=== PATIENT | male | born 1965 | race Caucasian/White ===

== ENCOUNTER 2017-01-24 22:11 | Emergency (ER) | payer OTHER ==
[2017-01-24 22:16] VITALS: BP 150/90; PULSE 74; TEMP 98.3; BMI 41.6
[2017-01-24] MEDS ORDERED: SODIUM CHLORIDE 1,000 ML IV STA (23:13)
[2017-01-24 23:22] LABS: BASOPHIL 0.7 % (0-2.0); EOSINOPHIL 4.4 % (0-4.5); MCH 31.1 pg (25.7-33.7); MCHC 34.6 g/dl (32.0-35.9); MEAN CELL VOLUME 89.8 fl (80-96); MEAN PLT VOLUME 7.6 fl (7.5-11.1); NEUTROPHILS 63.7 % (42.8-82.8); PLATELET COUNT 198 K/MM3 (134-434); RDW 13.3 % (11.9-15.9); WHITE BLOOD COUNT 7.3 K/mm3 (4.0-10.0)
--- NOTE | 2017-01-24 23:45 | PDOC ---
History of Present Illness - History of Present Illness Initial Comments: 01/24/17 23:45 The patient is a 51 year old male with history of hyperlipidemia and obesity who presents to the ED complaining of an episode of room-spinning dizziness with associated shortness of breath that began around 8 PM today and lasted only a few minutes. The patient states he was eating dinner at a restaurant at the onset of his symptoms. No fever or chills. No chest pain or palpitations. No headache, visual changes, or paresthesias. No nausea, vomiting, or diarrhea. He states he has been sick with sore throat and cough. <Karoline Moe - Last Filed: 01/24/17 23:45> - General History Source: Patient, Family Exam Limitations: No Limitations <Vincent Calles - Last Filed: 01/27/17 09:37> - General Chief Complaint: Lightheaded Stated Complaint: DIZZY/HEADACHE Time Seen by Provider: 01/24/17 22:56 Past History <Karoline Moe - Last Filed: 01/24/17 23:45> - Past Medical History HTN: Yes Hypercholesterolemia: Yes - Family Disease History Family Disease History: Heart Disease: Brother ( heart surgery in his 30s, no congenital etiology) - Immunization History Immunization Up to Date: Yes - Psycho/Social/Smoking Cessation Hx Anxiety: No Suicidal Ideation: No Smoking Status: No Smoking History: Never smoked Have you smoked in the past 12 months: No Number of Cigarettes Smoked Daily: 0 Hx Alcohol Use: No Drug/Substance Use Hx: No Substance Use Type: None Hx Substance Use Treatment: No <Vincent Calles - Last Filed: 01/27/17 09:37> - Past Medical History Allergies/Adverse Reactions: Allergies Allergy/AdvReac Type Severity Reaction Status Date / Time No Known Allergies Allergy Verified 01/24/17 22:16 Home Medications: Ambulatory Orders Ibuprofen 600 mg PO Q6H PRN #20 tablet 01/25/17 Meclizine HCl 25 mg PO Q6H PRN #15 tablet 01/25/17 Review of Systems - Review of Systems Able to Perform ROS?: Yes Comments:: 01/24/17 23:48 GENERAL/CONSTITUTIONAL: No fever or chills. No weakness. HEAD, EYES, EARS, NOSE AND THROAT: +Sore throat. No change in vision. No ear pain or discharge. CARDIOVASCULAR: +SOB (resolved) No chest pain, palpitations, lightheadedness. RESPIRATORY: +cough. No wheezing, or hemoptysis. GASTROINTESTINAL: No nausea, vomiting, diarrhea or constipation. GENITOURINARY: No dysuria, frequency, or change in urination. MUSCULOSKELETAL: No joint or muscle swelling or pain. No neck or back pain. SKIN: No rash NEUROLOGIC: +vertiginous dizziness (resolved). No headache, loss of consciousness, or change in strength/sensation. ENDOCRINE: No increased thirst. No abnormal weight change. HEMATOLOGIC/LYMPHATIC: No anemia, easy bleeding, or history of blood clots. ALLERGIC/IMMUNOLOGIC: No hives or skin allergy. <Karoline Moe - Last Filed: 01/24/17 23:45> *Physical Exam - Vital Signs Last Vital Signs Temp Pulse Resp BP Pulse Ox 98.3 F 74 18 150/90 97 01/24/17 22:13 01/24/17 22:13 01/24/17 22:13 01/24/17 22:13 01/24/17 22:13 - Physical Exam Comments: 01/24/17 23:49 GENERAL: Awake, alert, and fully oriented, in no acute distress HEAD: No signs of trauma EYES: PERRLA, EOMI, sclera anicteric, conjunctiva clear ENT: Auricles normal inspection, hearing grossly normal, nares patent, oropharynx clear without exudates. Moist mucosa NECK: Normal ROM, supple, no lymphadenopathy, JVD, or masses LUNGS: Breath sounds equal, clear to auscultation bilaterally. No wheezes, and no crackles HEART: Regular rate and rhythm, normal S1 and S2, no murmurs, rubs or gallops ABDOMEN: Soft, nontender, normoactive bowel sounds. No guarding, no rebound. No masses EXTREMITIES: Normal range of motion, no edema. No clubbing or cyanosis. No cords, erythema, or tenderness NEUROLOGICAL: Cranial nerves II through XII grossly intact. Normal speech, normal gait. Sensation intact throughout. 5/5 motor strength in 4 extremities. No cerebellar signs. Gait is normal without ataxia. SKIN: Warm, Dry, normal turgor, no rashes or lesions noted. <Karoline Moe - Last Filed: 01/24/17 23:45> - Vital Signs Last Vital Signs Temp Pulse Resp BP Pulse Ox 98.3 F 74 18 150/90 97 01/24/17 22:13 01/24/17 22:13 01/24/17 22:13 01/24/17 22:13 01/24/17 22:13 - Physical Exam Comments: 01/27/17 09:36 CORRECTION TO SCRIBE NOTE: CN II-XII is intact (NOT GROSSLY INTACT) <Vincent Calles - Last Filed: 01/27/17 09:37> Heart Score/ECG Review #1 ECG reviewed & interpreted by me at: 23:35 01/24/17 23:41 NSR 66, no std/kaelyn, normal intervals, normal axis, QTC 423 msec. no brugada, no HOCM, no WPW <Vincent Calles - Last Filed: 01/27/17 09:37> ED Treatment Course - LABORATORY CBC & Chemistry Diagram: 01/24/17 23:15 01/24/17 23:15 - ADDITIONAL ORDERS Additional order review: 01/24/17 23:15 RBC 4.85 MCV 89.8 MCHC 34.6 RDW 13.3 MPV 7.6 Neutrophils % 63.7 Lymphocytes % 21.7 D Monocytes % 9.5 Eosinophils % 4.4 Basophils % 0.7 <Karoline Moe - Last Filed: 01/24/17 23:45> - LABORATORY CBC & Chemistry Diagram: 01/24/17 23:15 01/24/17 23:15 - ADDITIONAL ORDERS Additional order review: 01/24/17 23:15 RBC 4.85 MCV 89.8 MCHC 34.6 RDW 13.3 MPV 7.6 Neutrophils % 63.7 Lymphocytes % 21.7 D Monocytes % 9.5 Eosinophils % 4.4 Basophils % 0.7 <Vincent Calles - Last Filed: 01/27/17 09:37> Medical Decision Making - Medical Decision Making 01/24/17 23:41 A portion of this note was documented by scribe services under my direction. I have reviewed the details of the note, within reason, and agree with the documentation with the following case summary and management plan written by me. Patient treated in the ED. Nursing notes are reviewed and incorporated into the medical decision-making. Vital signs reviewed. Peripheral IV access obtained by the nurse, laboratory studies are drawn and sent, reviewed and interpreted by myself. Vital Signs Temp Pulse Resp BP Pulse Ox 98.3 F 74 18 150/90 97 01/24/17 22:13 01/24/17 22:13 01/24/17 22:13 01/24/17 22:13 01/24/17 22:13 51 year old male with PMH of HLD, obesity presents with likely peripheral vertigo. The patient reports that he has been under the weather and with mild URI symptoms. Was at dinner today, when he felt vertiginous like symptoms. He felt a dizziness sensation and subsequently felt short of breath. Never had chest pain. Once his vertiginous symptoms resolved (in a few minutes), his SOB resolved. Reports feeling well. Never feinted. This occurred around 8 pm. I suspect that this was all peripheral vertigo. The patient's SOB sounds more secondary to anxiousness from his vertiginous symptoms. The patient reports having a history of prior vertigo episodes. The patient's ECG is reassuring. Will check labs and give IVF. If workup is negative, the patient may be discharged. Low suspicion for cardiac etiology. 01/25/17 00:03 CBC, BMP 01/24/17 23:15 01/24/17 23:15 CMP Sodium 142 mmol/L (136-145) 01/24/17 23:15 Potassium 3.8 mmol/L (3.5-5.1) 01/24/17 23:15 Chloride 105 mmol/L (98-107) 01/24/17 23:15 Carbon Dioxide 26 mmol/L (21-32) 01/24/17 23:15 Anion Gap 11 (8-16) 01/24/17 23:15 BUN 15 mg/dL (7-18) 01/24/17 23:15 Creatinine 1.0 mg/dL (0.7-1.3) D 01/24/17 23:15 Creat Clearance w eGFR > 60 (>60) 01/24/17 23:15 Random Glucose 144 mg/dL (74-106) H D 01/24/17 23:15 Calcium 8.3 mg/dL (8.5-10.1) L 01/24/17 23:15 Total Bilirubin 0.5 mg/dL (0.2-1.0) 01/24/17 23:15 AST 67 U/L (15-37) H D 01/24/17 23:15 ALT 106 U/L (12-78) H D 01/24/17 23:15 Alkaline Phosphatase 116 U/L (45-117) 01/24/17 23:15 Creatine Kinase 89 IU/L (39-308) 01/24/17 23:15 Troponin I < 0.02 ng/ml (0.00-0.05) 01/24/17 23:15 Total Protein 7.3 g/dl (6.4-8.2) 01/24/17 23:15 Albumin 3.7 g/dl (3.4-5.0) 01/24/17 23:15 Labs reviewed. There is some mild elevations in the LFTs. However, a copy of the LFTs were given to the patient to bring back to his doctor. The patient reports feeling reassured. Troponin is negative. Given the patient's URI symptoms, we'll prescribe Motrin. We'll also give a prescription for Antivert. I discussed the physical exam findings, ancillary test results and final diagnoses with the patient. I answered all of the patient's questions. The patient was satisfied with the care received and felt comfortable with the discharge plan and treatment plan. The patient will call their primary care physician within 24 hours to arrange follow-up and will return to the Emergency Department with any new, persistant or worsening symptoms. <Vincent Calles - Last Filed: 01/27/17 09:37> *DC/Admit/Observation/Transfer - Attestations Scribe Attestion: 01/24/17 23:49 Documentation prepared by Karoline Moe, acting as medical reception for Vincent Calles MD. <Karoline Moe - Last Filed: 01/24/17 23:45> - Discharge Dispostion Admit: No <Vincent Calles - Last Filed: 01/27/17 09:37> Diagnosis at time of Disposition: Vertigo - Discharge Dispostion Disposition: HOME Condition at time of disposition: Good - Prescriptions Prescriptions: Ibuprofen 600 mg PO Q6H PRN #20 tablet PRN Reason: Pain/fever Meclizine HCl 25 mg PO Q6H PRN #15 tablet PRN Reason: Vertigo - Referrals Referrals: Joao Lucas MD [Primary Care Provider] - - Patient Instructions Printed Discharge Instructions: DI for Vertigo Additional Instructions: Please drink plenty of fluids. If you start to feel dizzy, take a tablet of meclizine every 6 to 8 hours as needed. Take 600 mg ibuprofen for sore throat.
[2017-01-24 23:46] LABS: ALBUMIN 3.7 g/dl (3.4-5.0); ALK PHOS 116 U/L (45-117); ANION GAP 11 (8-16); BILIRUBIN,TOTAL 0.5 mg/dL (0.2-1.0); CALCIUM 8.3 mg/dL (8.5-10.1); CO2 26 mmol/L (21-32); GLUCOSE,RANDOM 144 mg/dL (74-106); SGOT/AST 67 U/L (15-37); SGPT/ALT 106 U/L (12-78); TOT PROT 7.3 g/dl (6.4-8.2)
[2017-01-24 23:48] LABS: TROPONIN I < 0.02 ng/ml (0.00-0.05)
[2017-01-24] MEDS ORDERED: IBUPROFEN 600 MG TABLET (FP) PO ONE (23:56)
[2017-01-25] MEDS ORDERED: IBUPROFEN 600 MG TABLET (FP) PO ONE (00:10)
--- NOTE | 2017-01-27 17:46 | EKG ---
Test Reason : Blood Pressure : / mmHG Vent. Rate : 066 BPM Atrial Rate : 066 BPM P-R Int : 164 ms QRS Dur : 088 ms QT Int : 404 ms P-R-T Axes : 054 055 059 degrees QTc Int : 423 ms NORMAL SINUS RHYTHM NORMAL ECG WHEN COMPARED WITH ECG OF 17-APR-2013 09:47, NO SIGNIFICANT CHANGE WAS FOUND Confirmed by LARON TEJADA MD ([id number]) on 01/27/2017 5:46:45 PM Referred By: Confirmed By:LARON TEJADA MD
== END 2017-01-25 00:17 | disposition home or self-care (01) ==
LOC: JER 22:11
PROC: 3E0337Z Introduction of Electrolytic and Water Balance Substance into Peripheral Vein, Percutaneous Approach (ICD-10-PCS; principal; 2017-01-24)
DX: R42 Dizziness and giddiness (principal); I10 Essential (primary) hypertension; E78.00 Pure hypercholesterolemia, unspecified
CPT/HCPCS: 36415; 80053; 82550; 84484; 85025; 93005; 93010; 96360; 99282-25

== ENCOUNTER 2019-04-08 22:29 | Emergency (ER) | payer OTHER | END 2019-04-08 23:35 | disposition home or self-care (01) | LOC: JER 22:29 ==

== ENCOUNTER 2022-04-29 10:31 | Emergency (ER) | payer OTHER ==
[2022-04-29 11:20] VITALS: BP 163/86; PULSE 55; TEMP 98.6; BMI 38.0
[2022-04-29] MEDS ORDERED: morphine CARPU-JECT 2 MG/1 ML DISP.SYRIN IVPUSH ONE (13:57)
[2022-04-29] MEDS ORDERED: ONDANSETRON 4 MG/2 ML VIAL IVPUSH ONE (13:57)
[2022-04-29] MEDS ORDERED: SODIUM CHLORIDE 0.9% 500 ML INFUS.BAG IV ONE (13:57)
[2022-04-29] MEDS ORDERED: KETOROLAC TROMETHAMINE 15 MG/ML VIAL IVPUSH ONE (13:57)
[2022-04-29] MEDS ORDERED: morphine SULFATE 4 MG/ML VIAL ONE (14:02)
[2022-04-29] MEDS ORDERED: KETOROLAC TROMETHAMINE 15 MG/ML VIAL ONE (14:02)
[2022-04-29] MEDS ORDERED: ONDANSETRON 4 MG/2 ML VIAL ONE (14:02)
[2022-04-29 14:51] LABS: EPI CELLS 9 /uL (0-25.1); HYALINE CASTS 1 /uL (0-3.1); URINE APPEARANCE CLEAR; URINE BACTERIA 39 /uL (0-1359); URINE BILIRUBIN NEGATIVE (NEGATIVE); URINE COLOR YELLOW; URINE GLUCOSE (UA) NEGATIVE (NEGATIVE); URINE KETONE NEGATIVE (NEGATIVE); URINE LEUK ESTERASE TRACE (NEGATIVE); URINE NITRITE NEGATIVE (NEGATIVE); URINE PROTEIN TRACE (NEGATIVE); URINE RBC 463 /uL (0-23.9); URINE UROBILINOGEN 0.2 mg/dL (0.2-1.0); URINE WBC 24 /uL (0-25.8)
[2022-04-29 15:00] LABS: BASO % 0.2 % (0-2.0); EOS % 0.2 % (0-4.5); HEMATOCRIT 48.2 % (35.4-49); HEMOGLOBIN 16.3 GM/dL (11.7-16.9); MCH 29.7 pg (25.7-33.7); MCHC 33.8 g/dl (32.0-35.9); MEAN PLT VOLUME 7.4 fl (7.5-11.1); MONO % 2.7 % (3.8-10.2); NEUT % 86.9 % (42.8-82.8); PLATELET COUNT 256 10^3/uL (134-434); RBC 5.48 M/mm3 (4.00-5.60); RDW 13.7 % (11.9-15.9); WHITE BLOOD COUNT 10.8 K/mm3 (4.0-10.0)
[2022-04-29 15:03] LABS: INR 1.05 (0.83-1.09); PROTHROMBIN TIME (PATIENT) 12.1 SEC (9.7-13.0)
[2022-04-29 15:07] LABS: ALBUMIN 4.3 g/dl (3.4-5.0); BLOOD UREA NITROGEN 14.3 mg/dL (7-18); CALCIUM 9.3 mg/dL (8.5-10.1)
[2022-04-29 15:11] LABS: CREATININE 0.8 mg/dL (0.55-1.3)
[2022-04-29 15:12] LABS: BILIRUBIN,TOTAL 0.6 mg/dL (0.2-1); TOT PROT 8.2 g/dl (6.4-8.2)
== END 2022-04-29 17:15 | disposition home or self-care (01) ==
LOC: JER 10:31
PROC: 3E0333Z Introduction of Anti-inflammatory into Peripheral Vein, Percutaneous Approach (ICD-10-PCS; principal; 2022-04-29)
PROC: 3E033NZ Introduction of Analgesics, Hypnotics, Sedatives into Peripheral Vein, Percutaneous Approach (ICD-10-PCS; 2022-04-29)
PROC: 3E033GC Introduction of Other Therapeutic Substance into Peripheral Vein, Percutaneous Approach (ICD-10-PCS; 2022-04-29)
DX: N20.0 Calculus of kidney (principal)
CPT/HCPCS: 36415; 74176-TC; 80053; 81003; 82550; 83690; 85025; 85610; 87086; 93005; 93010; 99285-25